=== PATIENT | female | born 1990 | race Two or more races ===

== ENCOUNTER 2019-06-05 17:41 | Emergency (ER) | payer MEDICAID ==
[~2019-06-05] VITALS: Ht 165.1 cm; Wt 55.3 kg
[2019-06-05 18:01] VITALS: BP 148/95
--- NOTE | 2019-06-05 18:12 | NUR ---
SEEN AND EXAMINED BY RENETTA GARZA NP.
[2019-06-05] MEDS ORDERED: LORAZEPAM 1 MG TABLET ONE (18:15)
[2019-06-05] MEDS ORDERED: LORAZEPAM 1 MG TABLET PO ONE (18:30)
--- NOTE | 2019-06-05 18:58 | NUR ---
Patient discharged to home in stable condition. Written and verbal after care instructions given. Patient verbalizes understanding of instruction.
== END 2019-06-05 18:59 | disposition home or self-care (01) ==
LOC: ER 17:44
DX: F41.0 Panic disorder [episodic paroxysmal anxiety] (principal); G43.909 Migraine, unspecified, not intractable, without status migrainosus; J45.909 Unspecified asthma, uncomplicated; Z90.89 Acquired absence of other organs; Z98.890 Other specified postprocedural states